=== PATIENT | female | born 1965 | race Caucasian/White ===

== ENCOUNTER 2018-10-20 06:39 | Day surgery (SDC) | payer OTHER ==
[~2018-10-20 06:39] MED LIST: CEFAZOLIN 1 GM/D5W RTU 1 GM/50 ML RTUPB IV PRN; LIDOCAINE 0.5% INJ-PF (5 MG/ML) 50 ML SDV SUBCUT PRN; RINGERS SOLUTION,LACTATED 1,000 ML IV PRN
[2018-10-20] MEDS ORDERED: ONDANSETRON HCL INJ/PF 4 MG/2 ML SDV ONE (06:57)
[2018-10-20] MEDS ORDERED: FENTANYL CITRATE INJ/PF 100 MCG/2 ML AMPUL ONE (06:57)
[2018-10-20] MEDS ORDERED: DEXAMETHASONE SOD PHOSPHATE INJ 4 MG/1 ML VIAL ONE (06:57)
[2018-10-20] MEDS ORDERED: MIDAZOLAM 2 MG/2 ML INJ ONE (06:57)
[2018-10-20] MEDS ORDERED: PROPOFOL INJ 200 MG/20 ML VIAL IV ONE (06:58)
[2018-10-20] MEDS ORDERED: LIDOCAINE 2% INJ (20 MG/ML) 20 ML MDV ONE ×2 (06:58→07:14)
[2018-10-20] MEDS ORDERED: POLYMYXIN B SULFATE INJ 500000 UNIT VIAL ONE (07:11)
[2018-10-20] MEDS ORDERED: BACITRACIN INJ 50,000 UNIT VIAL ONE (07:12)
[2018-10-20] MEDS ORDERED: LIDOCAINE 1% INJ-PF (10 MG/ML) 30 ML SDV ONE (07:12)
[2018-10-20] MEDS ORDERED: NORMAL SALINE INJ/PF 0.9% 10 ML SDV ONE (07:12)
[2018-10-20] MEDS: BUPIVACAINE HCL 0.5 % INJ/PF 30 ML SDV ONE ×2 (07:58→08:45)
[2018-10-20] MEDS ORDERED: KETAMINE HCL INJ 500 MG/10 ML VIAL ONE (08:43)
--- NOTE | 2018-10-20 10:34 | SURGICARE OPERATIVE REPORT E ---
[facility] NAME: PIERRE BENITEZ AGE: 53Y DATE OF SURGERY: 10/21/2018 ROOM: PREOPERATIVE DIAGNOSIS: HYPERTROPHIED BONE, LEFT CALCANEUS. POSTOPERATIVE DIAGNOSIS: HYPERTROPHIED BONE, LEFT CALCANEUS. OPERATION: Partial ostectomy, left calcaneus. SURGEON: FIDELINA ANGEL DPM PUMPMAN: Abdirahman Miller DPM PROCEDURE: Following induction of IV regional local anesthesia, the left foot and leg were prepped and draped in the usual sterile manner. A pneumatic tourniquet was placed around the left ankle and inflated to 150 mmHg after exsanguination of the limb via esmarch bandage. The following surgical procedure was then performed: Partial ostectomy left calcaneus. Attention was directed to the lateral aspect of the left calcaneus where an approximately 4 cm incision was made going prison between the lateral malleolus and the Achilles tendon. The incision was deepened via a combination of a blunt and sharp dissection. All bleeders were clamped and Bovied as necessary for the purposes of hemostasis. The incision was deepened to the level of the calcaneus. The capsule incision was then made and the bone was reflected from the medial and lateral aspects of the calcaneus. Utilizing an osteotome and mallet, the hypertrophied bone of the posterior aspect of the calcaneus was osteotomized perpendicular to the long axis of the bone. An approximately 0.5 cm x 2 cm wedge of bone was removed. The area was then rasped smooth utilizing a combination of a [employer] cross-cut rasp and a hand-held nasal rasp. An x-ray was taken. It was noted that adequate bone had been removed and that all surfaces were smooth and no spicules were noted. The area was then flushed with copious amounts of antibacterial saline solution. Bone wax was then applied to the freshly cut bone. The periosteum and capsule was then coapted and maintained utilizing simple interrupted sutures of 3-0 Vicryl. The subcutaneous tissue was coapted and maintained utilizing simple interrupted sutures of 4-0 Vicryl and the skin was coapted and maintained utilizing horizontal mattress sutures of 4-0 Nylon. A dry sterile dressing was then applied consisting of Luis M silk, 4 x 4s, Conform, Kerlix, and Coban. The pneumatic tourniquet was released. It was noted that all digits are warm and viable and the patient was transferred to the recovery room. DICTATING PHYSICIAN: FIDELINA ANGEL D.P.M. [id number] PHY#: [id number] ID: [id number] JOB#: [id number] ACCT: [id number] cc:FIDELINA ANGEL DPM >
--- NOTE | 2018-10-20 10:41 | RADIOLOGY REPORT (SQ) ---
EXAM DESCRIPTION: NO CHG FLUORO; FOOT LEFT 2 VIEWS COMPLETED DATE/TIME: 10/20/2018 9:38 am REASON FOR STUDY: LEFT FOOT OSTEOTOMY M89.372 HYPERTROPHY OF BONE, LEFT ANKLE AND FOOT COMPARISON: None. FLUOROSCOPY TIME: 9 images saved to PACS. TECHNIQUE: Intra-operative images acquired during surgical procedure to evaluate progress. NUMBER OF IMAGES: 9 LIMITATIONS: None. FINDINGS: Images obtained to evaluate operative progress. Please see operative report for detailed description of procedure. IMPRESSION: IMAGE(S) OBTAINED DURING PROCEDURE. COMMENT: Quality ID 145: Final reports for procedures using fluoroscopy that document radiation exp osure indices, or exposure time and number of fluorographic images (if radiation exposure indices are not available) Please consult full operative report of the attending physician for description of the procedure. TECHNICAL DOCUMENTATION: JOB ID: [id number] [employer]- All Rights Reserved Reading location - IP/workstation name: [email or web address]
--- NOTE | 2018-10-20 10:41 | RADIOLOGY REPORT (SQ) ---
EXAM DESCRIPTION: NO CHG FLUORO; FOOT LEFT 2 VIEWS COMPLETED DATE/TIME: 10/20/2018 9:38 am REASON FOR STUDY: LEFT FOOT OSTEOTOMY M89.372 HYPERTROPHY OF BONE, LEFT ANKLE AND FOOT COMPARISON: None. FLUOROSCOPY TIME: 9 images saved to PACS. TECHNIQUE: Intra-operative images acquired during surgical procedure to evaluate progress. NUMBER OF IMAGES: 9 LIMITATIONS: None. FINDINGS: Images obtained to evaluate operative progress. Please see operative report for detailed description of procedure. IMPRESSION: IMAGE(S) OBTAINED DURING PROCEDURE. COMMENT: Quality ID 145: Final reports for procedures using fluoroscopy that document radiation exp osure indices, or exposure time and number of fluorographic images (if radiation exposure indices are not available) Please consult full operative report of the attending physician for description of the procedure. TECHNICAL DOCUMENTATION: JOB ID: [id number] [employer]- All Rights Reserved Reading location - IP/workstation name: [email or web address]
--- NOTE | 2018-10-20 11:04 | SURGICARE DISCHARGE SUMMARY E ---
[facility] Discharge Summary NAME: PIERRE BENITEZ AGE: 53Y ADMITTED: 10/20/2018 DISCHARGED: 10/20/2018 SURGICAL PROCEDURE: Partial ostectomy left calcaneus. POSTOPERATIVE DIAGNOSIS: Hypertrophy of bone left calcaneus. SURGEON: Fidelina Marmolejo DPM BROKE BEATER MACHINE OPERATOR: Abdirahman Miller DPM HOSPITAL COURSE: The patient was admitted to [facility] with a chief complaint of a painful bump on the back of her left heel. She underwent several months of conservative therapy consisting of stretching exercises, use of an equinus brace, nonsteroidal anti-inflammatories, physical therapy, and there was just no change in her symptoms. The patient desired to have this problem surgically corrected. She underwent the above surgical procedure without any complications and was transferred to the recovery room. DISCHARGE INSTRUCTIONS: She was discharged with a postop surgical shoe, an ice pack, postoperative instructions, and postoperative prescriptions for Percocet 5/325 mg, #30, Phenergan 25 mg, #15, and cephalexin 500 mg, #4. She was given a followup appointment in the doctor's office for October 26 at 11 a.m. and then she was discharged from [facility]. DICTATING PHYSICIAN: FIDELINA MARMOLEJO D.P.M. [id number] PHY#: [id number] ID: [id number] JOB#: [id number] ACCT: [id number] cc:FIDELINA MARMOLEJO DPM >
== END 2018-10-20 10:37 | disposition home or self-care (01) ==
LOC: SC 06:39
PROVIDERS: ATTEND Podiatrist Foot Surgery
DX: M89.372 Hypertrophy of bone, left ankle and foot (principal); E78.5 Hyperlipidemia, unspecified; I11.9 Hypertensive heart disease without heart failure; R01.1 Cardiac murmur, unspecified; Z79.899 Other long term (current) drug therapy
CPT/HCPCS: 73620; 28120; J2250; J3490 ×6; J0690; J1100; J3010; J2405; J2704; 01480

== ENCOUNTER → 2019-09-23 | Outpatient (CLI) | payer OTHER ==
--- NOTE | 2019-09-23 11:03 | RADIOLOGY REPORT (SQ) ---
EXAM DESCRIPTION: U/S ABDOMEN COMPLETE W/DOPPLER COMPLETED DATE/TIME: 09/23/2019 10:30 am REASON FOR STUDY: ABD PAIN (R10.84) R10.84 GENERALIZED ABDOMINAL PAIN COMPARISON: None. TECHNIQUE: Dynamic and static grayscale images acquired of the abdomen and recorded on PACS. Additio nal selected color Doppler and spectral images recorded. Note: Study does not meet criteria for complete doppler/duplex scan LIMITATIONS: None. FINDINGS: PANCREAS: No masses. Visualized pancreatic duct normal caliber. LIVER: No masses. Echotexture normal. LIVER VASCULATURE: Normal directional flow of the main portal vein and hepatic veins. GALLBLADDER: Surgically absent. ULTRASOUND-DETECTED PIPER'S SIGN: Negative. INTRAHEPATIC DUCTS AND COMMON DUCT: CBD and intrahepatic ducts normal caliber. No filling defects. INFERIOR VENA CAVA: Normal flow. AORTA: No aneurysm. RIGHT KIDNEY:Normal size. Normal echogenicity. No solid or suspicious masses. No hydronephrosis. No c alcifications. LEFT KIDNEY: Normal size. Normal echogenicity. No solid or suspicious masses. No hydronephrosis. No calcifications. SPLEEN: Normal size. No solid masses. PERITONEAL AND PLEURAL SPACES: No ascites or effusions. OTHER: No other significant finding. IMPRESSION: NORMAL ABDOMINAL ULTRASOUND. TECHNICAL DOCUMENTATION: JOB ID: [id number] [employer]- All Rights Reserved Reading location - IP/workstation name: [email or web address]
== END ==
LOC: RAD 10:01
PROVIDERS: ATTEND Nurse Practitioner Family
DX: R10.84 Generalized abdominal pain (principal)
CPT/HCPCS: 76700; 93976